=== PATIENT | female | born 1965 | race Caucasian/White ===

== ENCOUNTER 2019-08-02 08:42 | Outpatient (CLI) | payer OTHER ==
--- NOTE | 2019-08-02 10:51 | MRI ---
MRI RIGHT KNEE WITHOUT CONTRAST: HISTORY: M23.91, internal derangement of right knee. FINDINGS: Medial Meniscus: Intact. Lateral Meniscus: Intact. There is rupture of the proximal fibers of the anterior cruciate ligament. The posterior cruciate li gament is intact. The MCL and LCL, and PCL are all intact. Extensor Mechanism: Quadriceps tendon, patella, and patella tendon are intact. Cartilage: Patellofemoral Compartment: There are multifocal high-grade chondral fissures of the lateral patella r facet with subcortical reactive marrow change. There is also some mild chondral fissuring and frayi ng of the central trochlea. Medial Compartment: Intact. Lateral Compartment: There is a high-grade chondral defect of the central weightbearing surface late ral femoral condyle measuring 5 mm in transverse with an AP dimension of 8 mm with adjacent chondral delamination. Bones: There is a fracture of the posterolateral tibial plateau extending into the posterolateral ti bial rim with the fracture fragment measuring 2 cm in transverse with the AP dimension of 8 mm. Ther e is 1 mm articular surface impaction. Muscles: The muscle signal and bulk is normal. Soft Tissues: There is a moderate joint effusion. IMPRESSION: 1. Full-thickness rupture of the proximal fibrous anterior cruciate ligament just after the femoral origin. 2. Fracture of the posterolateral tibial plateau with size as above with mm articular surface impac tion. This is at the submeniscal surface. 3. 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 4. Focal high-grade chondral defect at the lateral femoral condyle central and posterior articular s urface with adjacent delamination. POS: C
== END 2019-08-02 08:43 | disposition home or self-care (01) ==
LOC: SCSMRI 08:42
PROVIDERS: ATTEND Orthopaedic Surgery
DX: M23.91 Unspecified internal derangement of right knee (principal); S82.141A Displaced bicondylar fracture of right tibia, initial encounter for closed fracture; S83.511A Sprain of anterior cruciate ligament of right knee, initial encounter; M22.41 Chondromalacia patellae, right knee

== ENCOUNTER 2020-02-07 08:15 | Outpatient (CLI) | payer OTHER ==
[2020-02-07 14:01] LABS: Mean Corpuscular HGB CONC 33.6 g/dL (32.0-36.0); Mean Corpuscular Hemoglobin 30.4 pg (27.0-31.0); Mean Corpuscular Volume 90.4 fL (78.0-98.0); Mean Platelet Volume 9.1 fL (7.4-10.4); Platelet Count 222 thou/uL (130-400); RBC Distribution Width 11.5 % (11.5-14.5); Red Blood Cell (RBC) Count 4.95 mill/uL (4.20-5.40)
--- NOTE | 2020-02-08 09:05 | EKG ---
Test Reason : Blood Pressure : / mmHG Vent. Rate : 073 BPM Atrial Rate : 073 BPM P-R Int : 152 ms QRS Dur : 070 ms QT Int : 380 ms P-R-T Axes : 027 027 031 degrees QTc Int : 418 ms Normal sinus rhythm Normal ECG Confirmed by DR. Kimmy PEREZ ([id number]) on 02/08/2020 9:05:10 AM Referred By: Rachel Confirmed By:DR. Kimmy PEREZ
[2020-02-08 12:03] LABS: SARS-CoV-2 MS2 Positive; SARS-CoV-2 N Gene Negative; SARS-CoV-2 S Gene Negative; SARS-CoV-2 by NAA Not Detected (NotDetected); SARS-CoV-2 orf1ab Negative
== END 2020-02-07 08:16 | disposition home or self-care (01) ==
LOC: LABBT 08:15
PROVIDERS: ATTEND Orthopaedic Surgery Sports Medicine
DX: Z01.818 Encounter for other preprocedural examination (principal); Z20.828 Contact with and (suspected) exposure to other viral communicable diseases; S83.511A Sprain of anterior cruciate ligament of right knee, initial encounter
CPT/HCPCS: 85027; 87635; 93005; 93010; U0003

== ENCOUNTER 2020-02-10 05:56 | Day surgery (SDC) | payer OTHER ==
[2020-02-09 08:54] VITALS: BMI 29.6
[2020-02-10] MEDS ORDERED: Lidocaine 2% Jelly 5 ML TUBE ONE (06:09)
[2020-02-10] MEDS ORDERED: Fentanyl 100 MCG/2 ML VIAL ONE (06:09)
[2020-02-10] MEDS ORDERED: Vancomycin 1 GM/200 ML BAG ONE (06:10)
[2020-02-10] MEDS ORDERED: Scopolamine 1.5 mg/72 hour Patch ONE (06:31)
[2020-02-10] MEDS ORDERED: Bupivacaine/Epinephrine 0.25% 30 ML VIAL ONE (06:46)
[2020-02-10] MEDS ORDERED: Promethazine HCl 25 MG/ML VIAL ONE (07:49)
[2020-02-10] MEDS ORDERED: HYDROcodone/Acetaminophen 5/325 mg Tablet ONE (09:32)
--- NOTE | 2020-02-10 10:45 | OP ---
DATE OF PROCEDURE: 02/10/2020 PREOPERATIVE DIAGNOSIS: Right knee anterior cruciate ligament proximal avulsion. POSTOPERATIVE DIAGNOSIS: Right knee anterior cruciate ligament proximal avulsion. PROCEDURES PERFORMED: 1. Examination under anesthesia with diagnostic arthroscopy. 2. Arthroscopic anterior cruciate ligament direct repair using internal brace. ANESTHESIA: General with peripheral nerve block. TOURNIQUET TIME: 20 minutes. BLOOD LOSS: Minimal. DRAINS: None. COMPLICATIONS: None. TECHNIQUE: Following induction of general anesthesia, the patient was placed supine on the operating room table. Pneumatic tourniquet was applied to proximal right thigh. The right leg was prepped and draped in a sterile fashion for surgery. The knee was examined and noted to have a full range of motion. No mediolateral instability. 1+ positive [place], 1+ positive pivot shift, and negative Tone's. After exsanguination of the knee, the tourniquet was inflated to 300 mmHg. An arthroscope was inserted through a parapatellar lateral portal and the knee joint was examined. Intraarticular aspect of the knee demonstrated mild articular surface degeneration undersurface of the patella. It did not require debridement or chondroplasty. The medial compartment demonstrated normal articular cartilage and normal medial meniscus. Lateral compartment had a mild articular surface degeneration grade 1 with a normal lateral meniscus. Intercondylar notch had a proximal avulsion of the anterior cruciate ligament. It was not retracted. It was avulsed from the attachment site on the lateral femoral condyle wall. The wall was debrided to a smooth stable base with periosteum removed. The spot was marked for the femoral tunnel in preparation for direct repair. Using a Scorpion suture passer, #2 FiberWire sutures were lassoed around the anterior cruciate ligament stump. There was excellent fixation obtained. The four suture limbs were then tensioned. The knee was hyperflexed, a 4.0 mm drill bit was used to create a tunnel in the prepared site in the femoral condyle at the attachment site of the ACL. After preparation of the tunnel, the 4 suture limbs were placed 4.75 mm BioComposite SwiveLock anchor. The anchor was then advanced through the femoral tunnel. The sutures were tensioned, and the anchor was placed into the femoral tunnel, securing the ACL to the lateral femoral condyle wall. Excellent fixation and stability were obtained. The excess sutures were cut. internal brace FiberTape suture. Through the anteromedial portal, a guide pin was drilled through the tibial metaphysis into the base of the tibial attachment of the ACL. After creating the tunnel through a 1-cm incision anterior medial tibial metaphysis, a Franky suture passer was passed with FiberTape internal brace grasped and pulled inferiorly. This was then fixed on the tibial metaphysis using a 4.75 mm BioComposite SwiveLock anchor, placed in the tibial metaphysis. Tensioning of the internal brace was performed with the knee in full extension. Excellent fixation stabilization of the knee and the anterior cruciate was obtained. There was an absent [place] and absent pivot shift following fixation of the ACL. The knee was copiously irrigated. Arthroscopic equipment was removed. The wound was closed using 2-0 Vicryl and sierra in the skin. Large compressive sterile dressing was applied. The patient was placed in a postop knee brace. She tolerated the procedure well and was taken to recovery room in stable condition. Job ID: [id number]
[2020-02-10] MEDS ORDERED: Rocuronium Bromide 10 MG/ML (10ML VIAL) ONE (11:27)
[2020-02-10] MEDS ORDERED: Lidocaine 1% PF 5 ML VIAL ONE (11:27)
[2020-02-10] MEDS ORDERED: Succinylcholine 200 MG/10 ml SYRINGE FS ONE (11:27)
[2020-02-10] MEDS ORDERED: Bupivacaine HCl 0.5%/Epinephrine 1:200,000/PF 30 ml Vial ONE (11:27)
[2020-02-10] MEDS ORDERED: Glycopyrrolate 0.2 MG/ML 5 ML SYRINGE ONE (11:27)
[2020-02-10] MEDS ORDERED: Dexamethasone 20 MG/5 ML VIAL ONE (11:27)
[2020-02-10] MEDS ORDERED: PROPOFOL 200 MG/20 ML VIAL ONE (11:27)
[2020-02-10] MEDS ORDERED: Ondansetron PF 4 MG/2 ML Vial ONE (11:27)
== END 2020-02-10 11:05 | disposition home or self-care (01) ==
LOC: SDC 05:56
PROVIDERS: ATTEND Orthopaedic Surgery Sports Medicine
PROC: 3E0T3BZ Introduction of Anesthetic Agent into Peripheral Nerves and Plexi, Percutaneous Approach (ICD-10-PCS; principal; 2020-02-10)
PROC: 0MSN4ZZ Reposition Right Knee Bursa and Ligament, Percutaneous Endoscopic Approach (ICD-10-PCS; principal; 2020-02-10)
DX: S83.511A Sprain of anterior cruciate ligament of right knee, initial encounter (principal); G89.18 Other acute postprocedural pain; Z87.891 Personal history of nicotine dependence; Z88.0 Allergy status to penicillin; X58.XXXA Exposure to other specified factors, initial encounter
CPT/HCPCS: C1713; J0690; J1100; J2405; J2550; J2704; J3010; J3370